=== PATIENT | male | born 1980 | race Two or more races ===

== ENCOUNTER 2025-06-02 23:08 | Emergency (ER) | payer BC ==
[~2025-06-02] VITALS: Ht 182.9 cm; Wt 72.6 kg
[2025-06-03] MEDS ORDERED: oxyCODONE/APAP (5/325 MG) 1 UDTAB TABLET ONE (00:33)
[2025-06-03] MEDS: oxyCODONE/APAP (5/325 MG) 1 UDTAB TABLET PO ONE (00:34)
[2025-06-03] MEDS ORDERED: LIDOCAINE HCL/MPF 1% 30 ML VIAL IJ ONE (01:00)
[2025-06-03] MEDS: LIDOCAINE HCL/PF 1% 30 ML SDV IJ ONE (01:40)
[2025-06-03] MEDS ORDERED: KETO10TA2 PO (02:00)
[2025-06-03] MEDS ORDERED: AMOX-430 PO (02:00)
[2025-06-03] MEDS: MORPHINE SULFATE INJ 2 MG/ML DISP.SYRIN IM ONE (02:06)
[2025-06-03 02:07] VITALS: BP 120/77; TEMP 98; O2SAT 99
== END 2025-06-03 02:08 | disposition home or self-care (01) ==
LOC: ER 23:17
DX: S62.302A Unspecified fracture of third metacarpal bone, right hand, initial encounter for closed fracture (principal); S62.304A Unspecified fracture of fourth metacarpal bone, right hand, initial encounter for closed fracture; W22.8XXA Striking against or struck by other objects, initial encounter; Y93.89 Activity, other specified; Y92.89 Other specified places as the place of occurrence of the external cause; Y99.8 Other external cause status
CPT/HCPCS: 26605; 73130; 99152; 99285; J3490; G0500